=== PATIENT | female | born 1965 | race American Indian/Alaskan Native ===

== ENCOUNTER 2018-04-18 16:10 | Emergency (ER) | payer BC ==
[2018-04-18] MEDS ORDERED: ASPIRIN PO ONE (16:25)
[2018-04-18 17:32] LABS: BUN/Creatinine Ratio 11; Basophils # (Auto) 0.1 K/mm3 (0.0-0.1); Basophils % (Auto) 1.2 % (0.0-1.8); Blood Urea Nitrogen 8 mg/dL (7-17); Calcium 9.2 mg/dL (8.4-10.2); Eosinophils # (Auto) 0.2 K/mm3 (0.0-0.4); Hematocrit 40.2 % (30.3-42.9); Hemoglobin 13.3 gm/dl (10.1-14.3); Hemolysis Index 0; Lymphocytes # (Auto) 1.8 K/mm3 (1.2-5.4); Lymphocytes % (Auto) 42.7 % (13.4-35.0); Mean Corpuscular HGB Conc 33 % (30-34); Mean Corpuscular Hemoglobin 30 pg (28-32); Mean Corpuscular Volume 90 fl (79-97); Monocytes # (Auto) 0.5 K/mm3 (0.0-0.8); Monocytes % (Auto) 10.8 % (0.0-7.3); Platelet Count 279 K/mm3 (140-440); Red Blood Count 4.48 M/mm3 (3.65-5.03); Red Cell Distribution Width 16.4 % (13.2-15.2)
--- NOTE | 2018-04-18 17:49 | Emergency Department Report ---
ED Chest Pain HPI - General Chief Complaint: Chest Pain Stated Complaint: CHEST PAINS/SOB Time Seen by Provider: 04/18/18 17:46 Source: patient Mode of arrival: Ambulatory Limitations: No Limitations - History of Present Illness Initial Comments: This is a 52-year-old patient presents to emergency room complaining of chest pain and shortness of breath. She reports that she has sharp pain starting in her mid sternal area and radiated into her left chest and upper arm. She has been having this for 2 weeks but it has been constant for the last 2 days. No medication taken. Patient reports stress from her mom being diagnosed with end- stage COPD on her father become infected. She says she is under a lot stress MD Complaint: chest pain Onset/Timin -: week(s) Onset: during rest Pain Location: substernal, left chest Pain Radiation: LUE Severity: moderate Severity scale (0 -10): 6 Quality: sharp Consistency: constant Improves With: nothing Worsens With: exertion Context: other (multiple stressors) re: denies: nausea, vomting, diaphoresis, dyspnea, sense of impending doom Other Symptoms: denies: cough, fever, syncope, rash, acid taste in mouth, leg swelling, palpitations, burping Treatments Prior to Arrival: none Aspirin use within the Past 7 Days: (0) No - Related Data On Oral Contraceptives: No Home Medications Medication Instructions Recorded Confirmed Last Taken Acetaminophen [Tylenol] 500 mg PO Q8HR PRN 04/18/18 04/18/18 04/17/18 amLODIPine [Norvasc] 5 mg PO DAILY 04/18/18 04/18/18 Unknown Previous Rx's Medication Instructions Recorded Last Taken Type Aspirin 81 mg PO QDAY 30 Days #30 tab.chew 04/18/18 Unknown Rx Allergies Allergy/AdvReac Type Severity Reaction Status Date / Time No Known Allergies Allergy Unverified 04/18/18 16:25 Heart Score - HEART Score History: Slightly suspicious EKG: Normal Age: < 45 Risk factors: 1-2 risk factors Troponin: < normal limit HEART Score: 1 - Critical Actions Critical Actions: 0-3 pts:0.9-1.7%risk of adverse cardiac event.Candidate for discharge ED Review of Systems ROS: Stated complaint: CHEST PAINS/SOB Other details as noted in HPI Constitutional: denies: chills, fever Eyes: denies: vision change ENT: denies: ear pain, throat pain, congestion Respiratory: shortness of breath, SOB with exertion. denies: cough, wheezing Cardiovascular: denies: chest pain, palpitations, edema, syncope Gastrointestinal: denies: abdominal pain, nausea, vomiting, diarrhea Genitourinary: denies: urgency, dysuria, discharge Musculoskeletal: arthralgia. denies: back pain, joint swelling, myalgia Skin: denies: rash, lesions Neurological: denies: headache, weakness, vertigo ED Past Medical Hx - Past Medical History Previous Medical History?: Yes Hx Hypertension: Yes - Surgical History Past Surgical History?: No - Family History Family history: hypertension - Social History Smoking Status: Never Smoker Substance Use Type: None - Medications Home Medications: Home Medications Medication Instructions Recorded Confirmed Last Taken Type Acetaminophen [Tylenol] 500 mg PO Q8HR PRN 04/18/18 04/18/18 04/17/18 History Aspirin 81 mg PO QDAY 30 Days #30 tab.chew 04/18/18 Unknown Rx amLODIPine [Norvasc] 5 mg PO DAILY 04/18/18 04/18/18 Unknown History ED Physical Exam - General Limitations: No Limitations General appearance: alert, in no apparent distress - Head Head exam: Present: atraumatic, normocephalic, normal inspection, other - Eye Eye exam: Present: normal appearance, PERRL, EOMI Pupils: Present: normal accommodation (normal exam) - ENT ENT exam: Present: normal exam, normal orophraynx - Neck Neck exam: Present: normal inspection, full ROM. Absent: tenderness, lymphadenopathy - Respiratory Respiratory exam: Present: normal lung sounds bilaterally. Absent: respiratory distress, chest wall tenderness - Cardiovascular Cardiovascular Exam: Present: regular rate, normal rhythm, normal heart sounds. Absent: systolic murmur, diastolic murmur - GI/Abdominal GI/Abdominal exam: Present: soft, normal bowel sounds. Absent: distended, tenderness, guarding, rebound, rigid, mass, bruit, pulsatile mass, hernia - Extremities Exam Extremities exam: Present: normal inspection, full ROM, normal capillary refill , other. Absent: tenderness, pedal edema, joint swelling, calf tenderness - Back Exam Back exam: Present: normal inspection, full ROM, other (ambulates without any difficulties). Absent: tenderness, CVA tenderness (R), CVA tenderness (L), muscle spasm, paraspinal tenderness, vertebral tenderness, rash noted - Neurological Exam Neurological exam: Present: alert, oriented X3, normal gait, reflexes normal. Absent: motor sensory deficit - Psychiatric Psychiatric exam: Present: normal affect, normal mood - Skin Skin exam: Present: warm, dry, intact, normal color. Absent: rash ED Course Vital Signs 04/18/18 04/18/18 04/18/18 16:21 18:03 18:13 Temperature 99.4 F Pulse Rate 75 75 Respiratory 18 Rate Blood Pressure 145/102 145/102 Blood Pressure [Left] O2 Sat by Pulse 98 Oximetry 04/18/18 04/18/18 19:42 19:43 Temperature 98 F Pulse Rate 80 Respiratory 18 18 Rate Blood Pressure Blood Pressure 145/97 [Left] O2 Sat by Pulse 98 Oximetry - Reevaluation(s) Reevaluation #1: 04/18/18 18:04 Patient stable, to receive clonidine 0.2 mg by mouth and aspirin regimen 325 mg po and we will reevaluate. Troponin negative. EKG sinus rhythm. Reevaluation #2: 04/18/18 19:28 D-dimer elevated. Patient to have a CTA chest. Patient was seen by Dr. Moore once patient to be admitted under hospitalist service and consult gas station cashier. Dr. Cash notified and he will see the patient and admit. Reevaluation #3: 04/18/18 21:07 I discussed results of CT scan of patient. Dr. Moore saw patient and she had agreed to admission for chest pain and further workup with cardiology but she made multiple attempts to call around to see if anyone can watch her kids and she says she cannot get anyone to watch her kids so she has to go home. Patient decided to sign AMA form. Her blood pressure is better and she says she feels better and she is not having any further shortness of breath or chest pain. I discussed in detail her CT scan results along with chest x-ray results and laboratory reports and I told her if she decides to change her mind and return to the hospital and if symptoms recur to return to the hospital. He is in agreement. MYNOR score - Mynor Score Age > 65: (0) No Aspirin use within the Past 7 Days: (0) No 3 or more CAD Risk Factors: (0) No 2 or more Angina events in past 24 hrs: (0) No Known CAD with more than 50% Stenosis: (0) No Elevated Cardiac Markers: (0) No ST Deviation Greater than 0.5mm: (0) No MYNOR Score: 0 ED Medical Decision Making - Lab Data Result diagrams: 04/18/18 17:05 04/18/18 17:05 Lab Results 04/18/18 04/18/18 04/18/18 Range/Units 17:05 17:05 18:41 WBC 4.3 L (4.5-11.0) K/mm3 RBC 4.48 (3.65-5.03) M/mm3 Hgb 13.3 (10.1-14.3) gm/dl Hct 40.2 (30.3-42.9) % MCV 90 (79-97) fl MCH 30 (28-32) pg MCHC 33 (30-34) % RDW 16.4 H (13.2-15.2) % Plt Count 279 (140-440) K/mm3 Lymph % (Auto) 42.7 H (13.4-35.0) % [place] % (Auto) 10.8 H (0.0-7.3) % Eos % (Auto) 4.0 (0.0-4.3) % Baso % (Auto) 1.2 (0.0-1.8) % Lymph # 1.8 (1.2-5.4) K/mm3 [place] # 0.5 (0.0-0.8) K/mm3 Eos # 0.2 (0.0-0.4) K/mm3 Baso # 0.1 (0.0-0.1) K/mm3 Seg Neutrophils % 41.3 (40.0-70.0) % Seg Neutrophils # 1.8 (1.8-7.7) K/mm3 D-Dimer (0-234) ng/mlDDU Sodium 141 (137-145) mmol/L Potassium 3.9 (3.6-5.0) mmol/L Chloride 103.9 (98-107) mmol/L Carbon Dioxide 27 (22-30) mmol/L Anion Gap 14 mmol/L BUN 8 (7-17) mg/dL Creatinine 0.7 (0.7-1.2) mg/dL Estimated GFR > 60 ml/min BUN/Creatinine Ratio 11 % Glucose 90 (65-100) mg/dL Calcium 9.2 (8.4-10.2) mg/dL Troponin T < 0.010 < 0.010 (0.00-0.029) ng/mL 04/18/18 Range/Units 18:41 WBC (4.5-11.0) K/mm3 RBC (3.65-5.03) M/mm3 Hgb (10.1-14.3) gm/dl Hct (30.3-42.9) % MCV (79-97) fl MCH (28-32) pg MCHC (30-34) % RDW (13.2-15.2) % Plt Count (140-440) K/mm3 Lymph % (Auto) (13.4-35.0) % [place] % (Auto) (0.0-7.3) % Eos % (Auto) (0.0-4.3) % Baso % (Auto) (0.0-1.8) % Lymph # (1.2-5.4) K/mm3 [place] # (0.0-0.8) K/mm3 Eos # (0.0-0.4) K/mm3 Baso # (0.0-0.1) K/mm3 Seg Neutrophils % (40.0-70.0) % Seg Neutrophils # (1.8-7.7) K/mm3 D-Dimer 252.37 H (0-234) ng/mlDDU Sodium (137-145) mmol/L Potassium (3.6-5.0) mmol/L Chloride (98-107) mmol/L Carbon Dioxide (22-30) mmol/L Anion Gap mmol/L BUN (7-17) mg/dL Creatinine (0.7-1.2) mg/dL Estimated GFR ml/min BUN/Creatinine Ratio % Glucose (65-100) mg/dL Calcium (8.4-10.2) mg/dL Troponin T (0.00-0.029) ng/mL - EKG Data -: EKG Interpreted by Me (attending physician) EKG shows normal: sinus rhythm Rate: normal (sinus rhythm at 69 bpm) - EKG Data Interpretation: no acute changes, normal EKG - Radiology Data Radiology results: report reviewed Chest x-ray and CTA chest dictated by radiologist and reported fever by myself. Please see detailed report below Patient: LORA KINGSLEY MR#: [id number] : 1965 Acct:[id number] Age/Sex: 52 / F ADM Date: 04/18/18 Loc: ED Attending Dr: Ordering Physician: JOANNE SOARES Date of Service: 04/18/18 Procedure(s): XR chest routine 2V Accession Number(s): [id number] cc: JOANNE SOARES Fluoro Time In Minutes: FINAL REPORT EXAM: XR CHEST ROUTINE 2V HISTORY: chest pain TECHNIQUE: PA and lateral views of the chest Comparison: None FINDINGS: There is no evidence of infiltrate, pneumothorax or pleural fluid collection. The cardiomediastinal silhouette is normal in appearance. The bony structures are unremarkable. IMPRESSION: 1. No evidence of an acute pulmonary process. Transcribed By: ED Dictated By: NEYDA CLIFTON MD Electronically Authenticated By: NEYDA CLIFTON MD Signed Date/Time: 04/18/181835 DD/ 35 TD/TT: 04/18/18183504/18/18 20:44 Patient: LORA KINGSLEY MR#: [id number] : 1965 Acct:[id number] Age/Sex: 52 / F ADM Date: 04/18/18 Loc: ED Attending Dr: Ordering Physician: JOANNE SOARES Date of Service: 04/18/18 Procedure(s): CT angio chest Accession Number(s): [id number] cc: JOANNE SOARES FINAL REPORT EXAM: CT ANGIO CHEST HISTORY: chest pain/sob/ inc ddimer TECHNIQUE: Following administration of IV contrast axial helical imaging was performed through the chest with maximum intensity projection images obtained. Comparison: Chest x-ray also performed today FINDINGS: There is no evidence of infiltrate, pneumothorax or pleural fluid collection. There are multiple small, 2 millimeter or less, pleural based nodular densities in both lungs that are nonspecific in appearance but are most likely postinflammatory in nature. There are the two larger focal areas of pleural based pulmonary consolidation. In the right lower lobe the appearance is suggestive of atelectasis. However, in the posterior superior aspect of the left lower lobe there is an approximately 1.3 centimeter x 0.5 centimeter x 1.3 centimeter pleural based nodular density that appears to demonstrate enhancement. There is no evidence of pneumothorax or pleural fluid collection. The trachea and bronchi are patent. The heart appears to be normal size. The thoracic aorta is normal in appearance. No filling defects are demonstrated within the pulmonary arteries to suggest the presence of pulmonary artery emboli. The visualized portion the upper abdomen is unremarkable. The bony structures are notable for sclerosis in the anterior and superior aspect of T12 vertebral body that is incompletely imaged. This is of unclear etiology. IMPRESSION: 1. No evidence of an acute pulmonary process. 2. No evidence of pulmonary artery emboli. 3. Approximately 1.3 centimeter pleural based nodular density posterior superior aspect of the left lower lobe. Whether not this represents a focus of atelectasis or pleural based mass is unclear. Comparison with previous CT chest would be helpful. If no prior studies are available for comparison, short-term follow-up CT imaging would be helpful to evaluate for the static or dynamic nature of this finding. 4. Sclerosis in the anterior and superior aspect the T12 vertebral body that is incompletely imaged. This is of unclear etiology. Comparison with previous imaging studies would be helpful. If no prior studies are available for comparison, including this region in the short-term follow-up CT imaging study for the left pleural based nodular density is recommended. Transcribed By: ED Dictated By: NEYDA CLIFTON MD Electronically Authenticated By: NEYDA CLIFTON MD Signed Date/Time: 04/18/182030 DD/ 30 TD/TT: 04/18/18203004/18/18 20:47 - Medical Decision Making This is a 21-year-old female here report that she is having chest pain. She is a history of high blood pressure and take Norvasc. Pressure pressure is elevated today. She also reports that she is having some shortness of breath. Diagnostics:Chest X-ray views reveal no acute cardiopulmonary processes . CTA chest reveals no pulmonary embolism or any acute pulmonary processes but did report nodule to the left lower lung field and radiologist's suggests patient to have CT scan of the chest. Please refer to radiology report for detailed information. EKG sinus rhythm with no acute ST abnormality Labs: CBC, BMP stable. Troponin is stable 2. D-dimer is elevated. Urinalysis is stable Assessment/plan 1: Chest pain, atypical-patient pain has resolved. EKG normal sinus rhythm and troponin negative 2 She received aspirin 325 mg emergency room. And will be sent home on aspirin and cardiology follow-up. Cardiac score is 1 and MYNOR is 0 2: Elevated blood pressure with history of hypertension-patient given clonidine 0.2 mg and her blood pressure has normalized. I discussed with her that she needs to keep a log of her blood pressure and schedule appointment with her primary care doctor for evaluation and possible changes in her Norvasc dosage. And she voiced understanding 3: Shortness of breath-CTA chest negative for PE or any acute pulmonary processes but patient had left lower lobe nodule which need follow-up outpatient and patient was referred to radio frequency technician. D-dimer was slightly elevated but suspect from inflammatory process Doctor if ED spoke with patient's and evaluated patient and instructed her that she will need to be admitted due to chest pain and her high blood pressure coupled with age. She will need further workup by cardiology. It was decided that patient needed to be admitted due to her age and history of high blood pressure with chest pain to be seen in house by cardiology for further evaluation but after making several attempts to find someone to take care for children she decided that she had to go home because she did not have anyone to care for her kids. Her chest pain has resolved without any shortness of breath. I discussed with patient her laboratory results, CT scan findings along with pulmonary nodule and x-ray findings. I told her that if her symptoms return she needs to return to the emergency room [facility] but she will need to follow up with a gas station cashier for chest pain, pulmonologists for shortness of breath with CT findings of pulmonary nodule less than 6 cm. I also told her that she needs to follow-up with a primary care in a gave her on- call primary care doctor along with some outside [facility] to call to schedule appointment tomorrow for follow-up visit in 2 days. Patient is stable she left AGAINST MEDICAL ADVICE from emergency room. I went ahead and gave her prescription for aspirin 81 mg by mouth daily. She signed AMA form and medical records. - Differential Diagnosis ACS, PNA, PE, pulmonary mass, pleurisy Critical care attestation.: If time is entered above; I have spent that time in minutes in the direct care of this critically ill patient, excluding procedure time. ED Disposition Clinical Impression: Lung nodule < 6cm on CT, Shortness of breath Chest pain Qualifiers: Chest pain type: unspecified Qualified Code(s): R07.9 - Chest pain, unspecified Hypertension Qualifiers: Hypertension type: essential hypertension Qualified Code(s): I10 - Essential ( primary) hypertension Disposition: LEFT AGAINST MED ADVICE Is pt being admited?: No Does the pt Need Aspirin: No Condition: Stable Instructions: Chest Pain (ED), Hypertension (ED), Pulmonary Nodules (ED) Additional Instructions: Please follow up with primary care physician at [facility] and other referrals that is on your discharge instruction paperwork Follow-up with cardiology Dr. Street tomorrow Turned to the emergency room [facility], a few symptoms recurs Take a baby aspirin daily. Increase your fluid intake Your CT scan shows that you have a nodule in your left lower lung and he will need to follow-up with a radio frequency technician and please take x-ray and CT scan with you to visit. Call tomorrow to schedule an appointment. If your symptoms recur, please return to the emergency room Prescriptions: Aspirin 81 mg PO QDAY 30 Days #30 tab.chew Referrals: PRIMARY CARE, [Primary Care Provider] - 04/19/[address] MD [Staff Physician] - 04/19/18 CIRA PALAFOX MD [Staff Physician] - 04/20/18 NORAH MOODY DO [Staff Physician] - 3-5 Days [facility] [Outside] - 04/19/18 Forms: AMA Form, Work/School Release Form(ED)
[2018-04-18] MEDS ORDERED: CATAPRES PO ONE (18:04)
--- NOTE | 2018-04-18 18:36 | XRay Report ---
FINAL REPORT EXAM: XR CHEST ROUTINE 2V HISTORY: chest pain TECHNIQUE: PA and lateral views of the chest Comparison: None FINDINGS: There is no evidence of infiltrate, pneumothorax or pleural fluid collection. The cardiomediastinal silhouette is normal in appearance. The bony structures are unremarkable. IMPRESSION: 1. No evidence of an acute pulmonary process.
[2018-04-18 19:49] VITALS: BP 145/97
--- NOTE | 2018-04-18 20:32 | Cat Scan Report ---
FINAL REPORT EXAM: CT ANGIO CHEST HISTORY: chest pain/sob/ inc ddimer TECHNIQUE: Following administration of IV contrast axial helical imaging was performed through the chest with maximum intensity projection images obtained. Comparison: Chest x-ray also performed today FINDINGS: There is no evidence of infiltrate, pneumothorax or pleural fluid collection. There are multiple small, 2 millimeter or less, pleural based nodular densities in both lungs that are nonspecific in appearance but are most likely postinflammatory in nature. There are the two larger focal areas of pleural based pulmonary consolidation. In the right lower lobe the appearance is suggestive of atelectasis. However, in the posterior superior aspect of the left lower lobe there is an approximately 1.3 centimeter x 0.5 centimeter x 1.3 centimeter pleural based nodular density that appears to demonstrate enhancement. There is no evidence of pneumothorax or pleural fluid collection. The trachea and bronchi are patent. The heart appears to be normal size. The thoracic aorta is normal in appearance. No filling defects are demonstrated within the pulmonary arteries to suggest the presence of pulmonary artery emboli. The visualized portion the upper abdomen is unremarkable. The bony structures are notable for sclerosis in the anterior and superior aspect of T12 vertebral body that is incompletely imaged. This is of unclear etiology. IMPRESSION: 1. No evidence of an acute pulmonary process. 2. No evidence of pulmonary artery emboli. 3. Approximately 1.3 centimeter pleural based nodular density posterior superior aspect of the left lower lobe. Whether not this represents a focus of atelectasis or pleural based mass is unclear. Comparison with previous CT chest would be helpful. If no prior studies are available for comparison, short-term follow-up CT imaging would be helpful to evaluate for the static or dynamic nature of this finding. 4. Sclerosis in the anterior and superior aspect the T12 vertebral body that is incompletely imaged. This is of unclear etiology. Comparison with previous imaging studies would be helpful. If no prior studies are available for comparison, including this region in the short-term follow-up CT imaging study for the left pleural based nodular density is recommended.
== END 2018-04-18 21:30 | disposition left against medical advice (07) ==
LOC: ED 16:10
DX: I10 Essential (primary) hypertension (principal); R07.89 Other chest pain; R91.1 Solitary pulmonary nodule; R06.02 Shortness of breath
CPT/HCPCS: 36415; 71046; 71275; 80048; 84484; 85025; 85379; 93005; 93010; 99284; Q9967